=== PATIENT | female | born 1995 | race Caucasian/White ===

== ENCOUNTER 2017-06-12 17:48 | Emergency (ER) | payer OTHER ==
[~2017-06-12] VITALS: Ht 162.6 cm; Wt 55.4 kg
[~2017-06-12 17:48] MED LIST: BACTRIM,SEPT1 TABLET PO; CIPRO500 MG PO; FLAGYL500 MG PO; KEFLEX500 MG PO; MOTRIN600 MG PO; NAPROSYN500 MG PO; NORCO 5/3251 TABLET PO; ULTRACET1 TABLET PO; ZOFRAN ODT4 MG PO
[2017-06-12 19:07] VITALS: BP 119/87
== END 2017-06-12 19:07 | disposition home or self-care (01) ==
LOC: EME 17:48
DX: S50.01XA Contusion of right elbow, initial encounter (principal); V43.62XA Car passenger injured in collision with other type car in traffic accident, initial encounter; Y92.410 Unspecified street and highway as the place of occurrence of the external cause
CPT/HCPCS: 73080; 99281; 99284

== ENCOUNTER 2017-07-26 11:54 | Emergency (ER) | payer SELFPAY ==
[~2017-07-26] VITALS: Ht 170.2 cm; Wt 56.0 kg
[2017-07-26 11:57] VITALS: BP 149/84
== END 2017-07-26 12:50 | disposition home or self-care (01) ==
LOC: EME 11:54
PROC: 0HQFXZZ Repair Right Hand Skin, External Approach (ICD-10-PCS; principal; 2017-07-26)
DX: S61.210A Laceration without foreign body of right index finger without damage to nail, initial encounter (principal); S61.212A Laceration without foreign body of right middle finger without damage to nail, initial encounter; W26.0XXA Contact with knife, initial encounter; F17.200 Nicotine dependence, unspecified, uncomplicated
CPT/HCPCS: 99281; 99284

== ENCOUNTER 2017-08-13 19:12 | Emergency (ER) | payer SELFPAY ==
[~2017-08-13] VITALS: Ht 170.2 cm; Wt 56.8 kg
[2017-08-13 19:54] VITALS: BP 140/93
== END 2017-08-13 19:40 | disposition left against medical advice (07) ==
LOC: EME 19:12
DX: S09.92XA Unspecified injury of nose, initial encounter (principal); Z53.21 Procedure and treatment not carried out due to patient leaving prior to being seen by health care provider
CPT/HCPCS: 99281

== ENCOUNTER 2017-08-14 12:16 | Emergency (ER) | payer SELFPAY ==
[~2017-08-14] VITALS: Ht 170.2 cm; Wt 56.9 kg
[2017-08-14 14:33] VITALS: BP 112/83
== END 2017-08-14 14:34 | disposition home or self-care (01) ==
LOC: EME 12:16
DX: S02.2XXA Fracture of nasal bones, initial encounter for closed fracture (principal); S00.83XA Contusion of other part of head, initial encounter; F07.81 Postconcussional syndrome; F17.200 Nicotine dependence, unspecified, uncomplicated; W01.198A Fall on same level from slipping, tripping and stumbling with subsequent striking against other object, initial encounter; Y93.01 Activity, walking, marching and hiking
CPT/HCPCS: 70450; 70486